=== PATIENT | male | born 1975 | race Caucasian/White ===

== ENCOUNTER 2017-10-14 06:41 | Day surgery (SDC) | payer OTHER ==
[2017-10-10 16:59] VITALS: BMI 32.1
[2017-10-14] MEDS ORDERED: BUPIVACAINE HCL/PF 2.5 MG/ML - 30 ML VIAL IJ ONE (08:37)
[2017-10-14] MEDS ORDERED: MIDAZOLAM HCL 2 MG/2 ML SINGLE DOSE VIAL ONE (08:47)
[2017-10-14] MEDS ORDERED: PROPOFOL 20 ML ONE ×2 (08:50)
[2017-10-14] MEDS ORDERED: BUPIVACAINE HCL/PF 0.25% (2.5MG/ML) 10 ML VIAL IJ ONE (09:14)
[2017-10-14] MEDS ORDERED: PROMETHAZINE HCL 25 MG/1 ML VIAL IVPUSH PRN (09:38)
[2017-10-14] MEDS ORDERED: ONDANSETRON 4 MG/2 ML VIAL IVPUSH PRN (09:38)
[2017-10-14] MEDS ORDERED: oxyCODONE HCL 5 MG TABLET PO PRN ×2 (09:38)
[2017-10-14 09:44] VITALS: TEMP 97.7
[2017-10-14 10:42] VITALS: BP 138/88
[2017-10-14 11:24] VITALS: PULSE 64
--- NOTE | 2017-10-17 | OP ---
DATE OF OPERATION: 10/14/2017 SURGEON: Dre Hickman MD MOTTLER MACHINE FEEDER: CARLOS Gonsalez PREOPERATIVE DIAGNOSIS: 1. Left knee mediolateral meniscal tear. 2. Left knee cartilage injury. 3. Left knee synovitis. POSTOPERATIVE DIAGNOSIS: 1. Left knee mediolateral meniscal tear. 2. Left knee cartilage injury. 3. Left knee synovitis. PROCEDURE: 1. Left knee arthroscopy with partial meniscectomy of mediolateral meniscus. 2. Left knee arthroscopy with chondroplasty and abrasioplasty. 3. Left knee arthroscopy with synovectomy/medial plica removal. FINDINGS: 1. Medial meniscus body and posterior horn tear. 2. Lateral posterior horn tear. 3. Synovitis of the patellofemoral and mediolateral notch area with medial plica. 4. Minimal grade 1 cartilage injury to the mediolateral joint. 5. ACL and PCL are intact. 6. Central grade 2-3 cartilage injury of patellofemoral trochlea with antegrade 4 changes and a site of medial plica adhesion to patellofemoral trochlea. PROCEDURE: Informed consent was obtained. The patient was taken to the operating room where the left lower extremity was prepped and draped in a sterile fashion. A tourniquet was placed on the left upper thigh but not inflated. Using standard arthroscopic technique, a lateral incision and portal were made which allowed for introduction of the camera into the suprapatellar bursa. This was then taken to the medial joint line where under direct visualization, a medial incision and portal were made. Excessive synovium noted in the medial, lateral, patellofemoral and notch area was removed by the up-biting shaver and Bovie cautery. This was found to bring inflammatory tissue into the joint surface, a source of joint pain and dysfunction. Probing of the medial and lateral meniscus found tears described in the findings. These were removed with an up-biting shaver and taken back to a stable rim. Grade 2-3 degenerative changes were treated with chondroplasty, removing all flaking surfaces with low setting Bovie used along the periphery. Grade 4 changes were treated with abrasion-plasty. All areas of the knee were once again re-examined. The knee was then drained. A single suture was placed on all portals. Sterile dressing was placed. The patient was transferred to the recovery room. DRE HICKMAN M.D. [id number]
== END 2017-10-14 11:30 | disposition home or self-care (01) ==
LOC: FASU 06:41
PROVIDERS: ATTEND Orthopaedic Surgery
PROC: 0SBD4ZZ Excision of Left Knee Joint, Percutaneous Endoscopic Approach (ICD-10-PCS; 2017-10-14)
PROC: 0SBD4ZZ Excision of Left Knee Joint, Percutaneous Endoscopic Approach (ICD-10-PCS; 2017-10-14)
PROC: 0SBD4ZZ Excision of Left Knee Joint, Percutaneous Endoscopic Approach (ICD-10-PCS; principal; 2017-10-14 09:08)
DX: S83.242A Other tear of medial meniscus, current injury, left knee, initial encounter (principal); S83.282A Other tear of lateral meniscus, current injury, left knee, initial encounter; S83.8X2A Sprain of other specified parts of left knee, initial encounter; M65.862 Other synovitis and tenosynovitis, left lower leg; M67.52 Plica syndrome, left knee
CPT/HCPCS: 94760